=== PATIENT | female | born 1950 | race Caucasian/White ===

== ENCOUNTER 2021-01-24 09:43 | Emergency (ER) | payer MEDICARE, OTHER ==
[~2021-01-24] VITALS: Ht 162.6 cm; Wt 66.0 kg
[2021-01-24 09:52] VITALS: BP 143/51
[2021-01-24] MEDS ORDERED: LIDOCAINE-MPF 1%, 5ML ONE (09:54)
[2021-01-24] MEDS ORDERED: BUPIVACAINE 0.25% ONE (10:07)
[2021-01-24] MEDS ORDERED: BUPIVACAINE/PF-EPI 0.25% 1:200K SQ ONE (10:30)
[2021-01-24] MEDS ORDERED: LIDOCAINE-MPF 1%, 5ML INFIL ONE (10:30)
[2021-01-24] MEDS ORDERED: DIPH,PERTUSS(ACELL),TET VAC/PF 0.5 ML IM-VACC ONE ×2 (10:30→10:48)
--- NOTE | 2021-01-24 11:16 | NUR ---
PROVIDER AT BEDSIDE FOR SUTURES.
[2021-01-24] MEDS ORDERED: NEOSPORIN OINT. PKT 1 PACKET ONE (11:35)
== END 2021-01-24 11:59 ==
LOC: ED 11:37
DX: S81.811A Laceration without foreign body, right lower leg, initial encounter (principal); X58.XXXA Exposure to other specified factors, initial encounter; Y93.89 Activity, other specified; Y92.89 Other specified places as the place of occurrence of the external cause; Y99.8 Other external cause status
CPT/HCPCS: 12002; 90471; 90715; 99283

== ENCOUNTER 2021-02-04 14:24 | Emergency (ER) | payer MEDICARE ==
[~2021-02-04] VITALS: Ht 162.6 cm; Wt 75.9 kg
--- NOTE | 2021-02-04 14:50 | NUR ---
PT IN [facility] IN [facility]. FIOR BUCKNER AT FOR PT HISTORY AND ASSESSMENT. PT HAS CALL LIGHT WITHIN REACH AND DENIES ANY NEEDS AT THIS TIME. AWAITING NEW ORDERS.
[2021-02-04 15:13] VITALS: BP 141/88
--- NOTE | 2021-02-04 15:25 | NUR ---
PT WOUND CLEANED AND DRESSED. PT D/C WITH D/C SUMMARY. PT VERBALIZES UNDERSTANDING OF NEED FOR RETURN VISIT IN 4 DAYS AND DENIES ANY OTHER NEEDS PERTAINING TO THIS VISIT. PT AMBULATES TO REGISTRATION DESK WITH STEADY GAIT FOR D/C HOME.
== END 2021-02-04 15:14 | disposition home or self-care (01) ==
LOC: ED 15:00
DX: L53.9 Erythematous condition, unspecified (principal); J44.9 Chronic obstructive pulmonary disease, unspecified; I10 Essential (primary) hypertension; E11.9 Type 2 diabetes mellitus without complications
CPT/HCPCS: 99281